=== PATIENT | female | born 1985 | race Two or more races ===

== ENCOUNTER → 2018-03-26 | Emergency (ER) | payer OTHER ==
[~2018-03-26] VITALS: Ht 177.8 cm; Wt 67.6 kg
[~2018-03-26] MED LIST: CEPHALEXIN500 MG ORAL; Cephalexin 500mg cap ORAL ONE; IBUPROFEN600 MG ORAL
[2018-03-26 11:00] VITALS: BP 119/80
[2018-03-26 11:45] LABS: APPEARANCE,URINE CLOUDY; BILIRUBIN, URINE NEGATIVE (NEGATIVE); GLUCOSE, URINE (UA) NEGATIVE (NEGATIVE); KETONES,URINE NEGATIVE (NEGATIVE); LEUKOCYTE ESTERASE ,URINE 1+ (NEGATIVE); NITRITE,URINE POSITIVE (NEGATIVE); PH,URINE 5 (4.5-8.0); PROTEIN,URINE 1+ (NEGATIVE); UROBILINOGEN,URINE NORMAL MG/DL (0.0-1.0)
[2018-03-26 11:48] LABS: COLOR,URINE YELLOW
[2018-03-26 12:25] VITALS: BP 101/59
--- NOTE | 2018-03-26 14:11 | Emergency Room Report ---
History of Present Illness General Chief Complaint: Lower Back Pain or Injury Source: Patient Present Illness HPI 32-year-old female presents ED for evaluation. Complaining of back pain 2 days. Patient states initially she was experiencing UTI symptoms 1 week ago with dysuria. States that she did not seek medical attention at the time and that she's having back pain. Denies fevers or chills. Denies nausea or vomiting. Afebrile in triage. No other aggravating relieving factors. Denies any other associated symptoms Allergies: Coded Allergies: SULFA (SULFONAMIDE ANTIBIOTICS) (Verified Allergy, Unknown, 03/26/18) Patient History Past Medical History: other - congenital heart defect Past Surgical History: none Pertinent Family History: none Social History: Denies: smoking, alcohol use, drug use Last Menstrual Period: 02/19/2018 Now: No Immunizations: UTD Reviewed Nursing Documentation: PMH: Agreed; PSxH: Agreed Nursing Documentation-PMH Past Medical History: No History, Except For Hx Cardiac Problems: Yes - Congenital Heart Defect Review of Systems All Other Systems: negative except mentioned in HPI Physical Exam Vital Signs Date Time Temp Pulse Resp B/P (MAP) Pulse Ox O2 Delivery O2 Flow Rate FiO2 03/26/18 10:49 98.4 92 14 122/83 97 Room Air Sp02 EP Interpretation: reviewed, normal General Appearance: no apparent distress, alert, GCS 15, non-toxic Head: normocephalic Eyes: bilateral eye normal inspection, bilateral eye PERRL ENT: normal ENT inspection Neck: normal inspection Respiratory: normal inspection Cardiovascular #1: normal inspection Gastrointestinal: normal bowel sounds, non tender, soft, non-distended, no guarding, no rebound Rectal: deferred Genitourinary: CVA tenderness (R), CVA tenderness (L) Musculoskeletal: normal inspection Neurologic: alert, oriented x3, responsive, motor strength/tone normal, sensory intact, speech normal Psychiatric: normal inspection Skin: normal inspection Lymphatic: normal inspection Medical Decision Making Diagnostic Impression: Primary Impression: Pyelonephritis ER Course Hospital Course 32-year-old female presents to ED complaining of dysuria with flank pain Differential diagnoses include: UTI, cystitis, pyelonephritis Clinical course Patient placed on stretcher. After initial history and physical I ordered UA, urine . UA + bacteria. clinically concerning for pyelonephritis. patient appears nontoxic, afebrile. toelrating PO intake. given keflex here Patient is a good candidate for outpatient therapy we will discharge with antibiotics. Safe for discharge close outpatient follow-up Diagnosis - pyelonephritis Stable and discharged home with prescriptions for Rx Keflex. Instructed to followup with PMD. Return to ED if symptoms recur or worsen Labs Test 03/26/18 11:04 Urine Color Yellow Urine Appearance Cloudy Urine pH 5 (4.5-8.0) Urine Specific [place] 1.020 (1.005-1.035) Urine Protein 1+ (NEGATIVE) Urine Glucose (UA) Negative (NEGATIVE) Urine Ketones Negative (NEGATIVE) Urine Blood 2+ (NEGATIVE) Urine Nitrite Positive (NEGATIVE) Urine Bilirubin Negative (NEGATIVE) Urine Urobilinogen Normal MG/DL (0.0-1.0) Urine Leukocyte Esterase 1+ (NEGATIVE) Urine RBC 2-4 /HPF (0 - 2) Urine WBC 10-15 /HPF (0 - 2) Urine Squamous Epithelial Cells Many /LPF (NONE/OCC) Urine Bacteria Many /HPF (NONE) Urine HCG, Qualitative Negative (NEGATIVE) Last Vital Signs Date Time Temp Pulse Resp B/P (MAP) Pulse Ox O2 Delivery O2 Flow Rate FiO2 03/26/18 12:25 98.0 89 16 101/59 100 Room Air Status: improved Disposition: HOME, SELF-CARE Condition: Stable Scripts Ibuprofen* (MOTRIN*) 600 Mg Tablet 600 MG ORAL Q8H PRN for For Pain, #30 TAB 0 Refills Prov: Jeffrey Ayala MD 03/26/18 Cephalexin* (KEFLEX*) 500 Mg Capsule 500 MG ORAL EVERY 6 HOURS for 7 Days, CAP Prov: Jeffrey Ayala MD 03/26/18 Patient Instructions: Pyelonephritis, Adult, [id number] Jeffrey Ayala MD Mar 26, 2018 14:11
== END | disposition home or self-care (01) ==
LOC: EMR 11:14
DX: N12 Tubulo-interstitial nephritis, not specified as acute or chronic (principal); Q24.9 Congenital malformation of heart, unspecified; Z88.2 Allergy status to sulfonamides
CPT/HCPCS: 81003; 81025; 87086; 87181; 99283